=== PATIENT | male | born 1980 | race Caucasian/White ===

== ENCOUNTER → 2017-02-18 | Outpatient (CLI) | payer OTHER ==
--- NOTE | 2017-02-18 09:41 | CT ---
EXAMINATION TYPE: CT abdomen pelvis w con DATE OF EXAM: 02/18/2017 9:04 AM COMPARISON: NONE HISTORY: Rt inguinal hernia for 4 months per patient with groin pain, history of ruptured spleen per patient. CT DLP: 1129 mGycm, Automated Exposure Control for Dose Reduction was Utilized. CONTRAST: CT scan of the abdomen and pelvis is performed with oral and with IV Contrast, patient injected with 100 mL of Omnipaque 300. FINDINGS: LUNG BASES: No significant abnormality is appreciated. LIVER/GB: No significant abnormality is appreciated. PANCREAS: There is well demarcated left lateral margin of pancreas on axial image 19 with absent dist al body and tail suggesting prior partial pancreatectomy changes. 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 SPLEEN: No significant abnormality is seen. ADRENALS: No significant abnormality is seen. KIDNEYS: There is 2 mm calculus mid pole level left kidney on axial image 26. Symmetric cortical medu llary uptake and excretion from both kidneys is seen. No hydronephrosis is evident bilaterally. BOWEL: The oral contrast reaches level of the distal transverse colon. There is no suspicious small o r large bowel dilatation identified. Normal-appearing appendix is seen from the cecum near coronal im age 53. PROSTATE/SEMINAL VESICLES: No gross abnormality seen. LYMPH NODES: No greater than 1cm abdominal or pelvic lymph nodes are appreciated. OSSEOUS STRUCTURES: No significant abnormality is seen. OTHER: No significant fat or bowel containing right inguinal hernia is present. Benign-appearing subc entimeter groin lymph nodes are noted bilaterally. IMPRESSION: No suspicious bowel or fat-containing inguinal hernia is seen bilaterally. Symmetric moses earance to the inguinal canals is noted.
== END | disposition home or self-care (01) ==
LOC: RADCTMAIN 08:24
PROVIDERS: ATTEND Surgery
DX: K40.90 Unilateral inguinal hernia, without obstruction or gangrene, not specified as recurrent (principal)
CPT/HCPCS: 74177; Q9967

== ENCOUNTER 2017-04-30 08:22 | Day surgery (SDC) | payer OTHER ==
[2017-04-29 11:26] VITALS: BMI 24.3
[~2017-04-30 08:22] MED LIST: DEXAMETHASONE SOD PHOSPHATE 10 MG/ML 1 ML VIAL IV ONE; HYDROmorphone 1 MG/ML 1 ML SYRINGE IVP PRN; LACTATED RINGERS 1,000 ML IV SCH; LIDOCAINE 1% 20 ML VIAL (10MG/ML) FOR IV START INTRADERMA PRN; ONDANSETRON 4 MG/2 ML VIAL IVP ONE; SCOPOLAMINE 1.5MG/72HR PATCH TRANSDERM ONE; ceFAZolin 2 GM in SODIUM CHLORIDE 0.9% 100 ML IVPB ONE
[2017-04-30 08:32] VITALS: RESP 16; TEMP 98.3
[2017-04-30] MEDS ORDERED: fentaNYL (PF) 50 MCG/ML 2 ML AMP IV ONE (09:56)
[2017-04-30] MEDS ORDERED: MIDAZOLAM 2 MG/2 ML VIAL IVP ONE (09:56)
[2017-04-30 10:44] VITALS: BP 114/78; PULSE 99
--- NOTE | 2017-04-30 11:05 | P.PN ---
Progress Note - Text Patient is a 37-year-old gentleman who initially presented to me about a year ago with right groin pain and swelling. Clinically diagnosed as having inguinal hernia. He has previously canceled for surgery twice. He presented after having back strain yesterday. He is now complaining of significant amount of pain in his back with difficulty in walking and numbness and tingling shooting down his left leg when he bends. He has received Versed at this time. On physical examination he is afebrile his vital signs stable and will region were inspected minimal tenderness. There is no incarcerated inguinal hernias at this time. Although he does not report any loss of sensation at this time his examination is limited due to the fact that she received Versed already. Assessment and plan. Patient is symptomatic right inguinal possible bilateral inguinal hernia. He was scheduled for robot-assisted laparoscopic hernia repair. However due to the significant finding of moderate to severe back pain resulting in difficulty in walking and numbness tingling when bending I have elected to hold off on the surgery. At this time and do not want to worsen his back pain by positioning which may require some twisting. The patient she'll be rescheduled for his inguinal hernia once his back issues have resolved. He is to follow-up with his primary care doctor for his back issues.
== END 2017-04-30 11:10 | disposition home or self-care (01) ==
LOC: OR 08:22
PROVIDERS: ATTEND Surgery
DX: K40.20 Bilateral inguinal hernia, without obstruction or gangrene, not specified as recurrent (principal); Z87.891 Personal history of nicotine dependence
CPT/HCPCS: 49650; J2250; J1100; J2405; J3010

== ENCOUNTER 2017-12-02 18:30 | Emergency (ER) | payer OTHER ==
[2017-12-02] MEDS ORDERED: KETOROLAC 30 MG/ML 1 ML VIAL IVP STA (18:58)
[2017-12-02] MEDS ORDERED: SODIUM CHLORIDE 0.9% 2,000 ML IV STA (18:58)
[2017-12-02] MEDS ORDERED: ONDANSETRON 4 MG/2 ML VIAL IVP STA (18:58)
--- NOTE | 2017-12-02 19:12 | ED ---
General Adult HPI - General Chief complaint: ENT Stated complaint: Vomiting Time Seen by Provider: 12/02/17 18:48 Source: patient, RN notes reviewed Mode of arrival: ambulatory Limitations: no limitations - History of Present Illness Initial comments: Chief complaint and history of present illness this is a 37-year-old male here for complaint of nausea vomiting for 33 days. Also with a sore throat muscle aches and pains. Patient denies any significant headache no stiff neck. - Related Data Previous Rx's Medication Instructions Recorded Azithromycin [Zithromax Z-pack] 250 mg PO DIRECTED #6 tab 12/02/17 Allergies Allergy/AdvReac Type Severity Reaction Status Date / Time No Known Allergies Allergy Verified 12/02/17 18:52 Review of Systems ROS Statement: Those systems with pertinent positive or pertinent negative responses have been documented in the HPI. review of systems. The patient reports no visual acuity changes reports having had a sore throat, mild headache but no meningeal irritation no stiff neck. No chest pain or shortness of breath he said nausea vomiting for 2 days to keep anything down. Denies any rashes. Did not get a flu shot this year. All systems are reviewed.Past medical problems significant for asthma, osteoarthritis and right shoulder surgery. He' s also had bilateral inguinal hernia repair. Denies any ALLERGIES. Does smoke strongly encouraged to stop drink alcohol socially. His occupation is a applicator sprayer. ROS Other: All systems not noted in ROS Statement are negative. Past Medical History Past Medical History: Asthma, Osteoarthritis (OA) Additional Past Medical History / Comment(s): , Right shoulder pain , inguinal hernia History of Any Multi-Drug Resistant Organisms: None Reported Past Surgical History: Hernia Repair Additional Past Surgical History / Comment(s): spleen repair in 1990, drained a cyst on pancreas Past Anesthesia/Blood Transfusion Reactions: No Reported Reaction Past Psychological History: Depression Smoking Status: Current every day smoker - Past Family History Mother Family Medical History: No Reported History General Exam - General Exam Comments Initial Comments: General: The patient is awake and alert, complaining of muscle aches and pains, fever at home. Sore throat and cough. Vital signs temperature 100 pulse 127 respiratory rate 16 pulse ox 97% room air blood pressure 132/92 Eye: Pupils are equal, round and reactive to light, extra-ocular movements are intact ; there is normal conjunctiva bilaterally. No signs of icterus. Ears, nose, mouth and throat: There are moist mucous membranes and no oral lesions. pharynx mildly red no exudate. Neck: The neck is supple, there is no tenderness , tender cervical lymphadenopathy. Cardiovascular: tachycardic heart rate, 125.. No murmur, rub or gallop is appreciated. Respiratory: Lungs are clear to auscultation, respirations are non-labored, breath sounds are equal. No wheezes, stridor, rales, or rhonchi. Gastrointestinal: Soft, non-distended, non-tender abdomen without masses or organomegaly noted. There is no rebound or guarding present. No CVA tenderness. Bowel sounds are unremarkable. Back: There is no tenderness to palpation in the midline. There is no obvious deformity. No rashes noted. Musculoskeletal: Normal ROM, no tenderness, There is no pedal edema. There is no calf tenderness or swelling. Sensation intact. Neurological: no evidence of any complaint of a neuro deficits. Skin: Skin is warm and dry and no rashes or lesions are noted. Psychiatric: past history depression no complaints this time. Limitations: no limitations Course Vital Signs 12/02/17 18:39 Temperature 100 F H Pulse Rate 127 H Respiratory 16 Rate Blood Pressure 132/92 O2 Sat by Pulse 97 Oximetry Medical Decision Making - Medical Decision Making rectal decision making; the patient presents with fever muscle aches and pains and sore throat. Labs show white count 9.1 hemoglobin 16 hematocrit of 50. Potassium 4.4 with a BUN 20 creatinine 0.88 and GFR greater than 60. Glucose 1. Patient's strep test is positive. His flu tests are negative. - Lab Data Result diagrams: 12/02/17 19:12 12/02/17 19:12 Lab Results 12/02/17 12/02/17 12/02/17 Range/Units 19:12 19:12 19:12 WBC 9.1 (3.8-10.6) k/uL RBC 5.54 (4.30-5.90) m/uL Hgb 16.9 (13.0-17.5) gm/dL Hct 50.7 (39.0-53.0) % MCV 91.5 (80.0-100.0) fL MCH 30.5 (25.0-35.0) pg MCHC 33.3 (31.0-37.0) g/dL RDW 12.5 (11.5-15.5) % Plt Count 231 (150-450) k/uL Neutrophils % 86 % Lymphocytes % 7 % Monocytes % 4 % Eosinophils % 1 % Basophils % 1 % Neutrophils # 7.8 H (1.3-7.7) k/uL Lymphocytes # 0.7 L (1.0-4.8) k/uL Monocytes # 0.4 (0-1.0) k/uL Eosinophils # 0.1 (0-0.7) k/uL Basophils # 0.0 (0-0.2) k/uL Sodium 137 (137-145) mmol/L Potassium 4.4 (3.5-5.1) mmol/L Chloride 99 (98-107) mmol/L Carbon Dioxide 27 (22-30) mmol/L Anion Gap 11 mmol/L BUN 20 (9-20) mg/dL Creatinine 0.88 (0.66-1.25) mg/dL Est GFR (MDRD) Af Amer >60 (>60 ml/min/1.73 sqM) Est GFR (MDRD) Non-Af >60 (>60 ml/min/1.73 sqM) Glucose 108 H (74-99) mg/dL Calcium 9.9 (8.4-10.2) mg/dL Total Bilirubin 0.5 (0.2-1.3) mg/dL AST 20 (17-59) U/L ALT 32 (21-72) U/L Alkaline Phosphatase 93 (38-126) U/L Total Protein 7.5 (6.3-8.2) g/dL Albumin 4.5 (3.5-5.0) g/dL Influenza Type A RNA Not Detected (Not Detectd) Influenza Type B (PCR) Not Detected (Not Detectd) Group A Strep Rapid (Negative) 12/02/17 Range/Units 19:12 WBC (3.8-10.6) k/uL RBC (4.30-5.90) m/uL Hgb (13.0-17.5) gm/dL Hct (39.0-53.0) % MCV (80.0-100.0) fL MCH (25.0-35.0) pg MCHC (31.0-37.0) g/dL RDW (11.5-15.5) % Plt Count (150-450) k/uL Neutrophils % % Lymphocytes % % Monocytes % % Eosinophils % % Basophils % % Neutrophils # (1.3-7.7) k/uL Lymphocytes # (1.0-4.8) k/uL Monocytes # (0-1.0) k/uL Eosinophils # (0-0.7) k/uL Basophils # (0-0.2) k/uL Sodium (137-145) mmol/L Potassium (3.5-5.1) mmol/L Chloride (98-107) mmol/L Carbon Dioxide (22-30) mmol/L Anion Gap mmol/L BUN (9-20) mg/dL Creatinine (0.66-1.25) mg/dL Est GFR (MDRD) Af Amer (>60 ml/min/1.73 sqM) Est GFR (MDRD) Non-Af (>60 ml/min/1.73 sqM) Glucose (74-99) mg/dL Calcium (8.4-10.2) mg/dL Total Bilirubin (0.2-1.3) mg/dL AST (17-59) U/L ALT (21-72) U/L Alkaline Phosphatase (38-126) U/L Total Protein (6.3-8.2) g/dL Albumin (3.5-5.0) g/dL Influenza Type A RNA (Not Detectd) Influenza Type B (PCR) (Not Detectd) Group A Strep Rapid Positive A (Negative) Disposition Clinical Impression: Strep pharyngitis Disposition: HOME SELF-CARE Condition: Fair Instructions: Strep Throat (ED) Additional Instructions: Increase fluids, use Tylenol or ibuprofen for pain and fever. Taking the azithromycin until complete. Prescriptions: Azithromycin [Zithromax Z-pack] 250 mg PO DIRECTED #6 tab Referrals: Marta Marrero MD [Primary Care Provider] - 1-2 days Time of Disposition: 21:21
[2017-12-02 19:28] LABS: Basophils % (A) 1 %; Eosinophils # (A) 0.1 k/uL (0-0.7); Eosinophils % (A) 1 %; HCT 50.7 % (39.0-53.0); HGB 16.9 gm/dL (13.0-17.5); Lymphocytes # (A) 0.7 k/uL (1.0-4.8); Lymphocytes % (A) 7 %; MCH 30.5 pg (25.0-35.0); MCHC 33.3 g/dL (31.0-37.0); MCV 91.5 fL (80.0-100.0); Mean Platelet Volume 7.1; Monocytes # (A) 0.4 k/uL (0-1.0); Monocytes % (A) 4 %; Neutrophils # (A) 7.8 k/uL (1.3-7.7); Neutrophils % (A) 86 %; Platelet Count 231 k/uL (150-450); RBC 5.54 m/uL (4.30-5.90); RDW 12.5 % (11.5-15.5); WBC 9.1 k/uL (3.8-10.6)
[2017-12-02 19:32] LABS: ALT 32 U/L (21-72); AST 20 U/L (17-59); Albumin 4.5 g/dL (3.5-5.0); Alkaline Phosphatase 93 U/L (38-126); Anion Gap 11 mmol/L; Blood Urea Nitrogen 20 mg/dL (9-20); Calcium 9.9 mg/dL (8.4-10.2); Carbon Dioxide 27 mmol/L (22-30); Chloride 99 mmol/L (98-107); Glucose 108 mg/dL (74-99); Potassium 4.4 mmol/L (3.5-5.1); Sodium 137 mmol/L (137-145); Total Bilirubin 0.5 mg/dL (0.2-1.3); Total Protein 7.5 g/dL (6.3-8.2)
[2017-12-02] MEDS ORDERED: AZITHROMYCIN 250 MG TAB PO STA (20:50)
[2017-12-02 23:35] VITALS: BP 112/73; PULSE 101; RESP 18; TEMP 100.6
== END 2017-12-02 21:46 | disposition home or self-care (01) ==
LOC: EC 18:30
DX: J02.0 Streptococcal pharyngitis (principal); F17.200 Nicotine dependence, unspecified, uncomplicated
CPT/HCPCS: 36415; 80053; 85025; 87430; 87502; 99284; 96374; 96361 ×2; J2405

== ENCOUNTER 2018-12-18 00:55 | Emergency (ER) | payer OTHER ==
[2018-12-18 03:32] LABS: Appearance,Urine Clear (Clear); Basophils # (A) 0.1 k/uL (0-0.2); Basophils % (A) 1 %; Bilirubin,Urine Negative (Negative); Blood,Urine Negative (Negative); Color,Urine Yellow; Eosinophils # (A) 0.2 k/uL (0-0.7); Eosinophils % (A) 2 %; Glucose,Urine (UA) Negative (Negative); HCT 46.7 % (39.0-53.0); HGB 15.3 gm/dL (13.0-17.5); Ketones,Urine Negative (Negative); Leukocyte Esterase,Urine Negative (Negative); Lymphocytes # (A) 2.9 k/uL (1.0-4.8); Lymphocytes % (A) 31 %; MCH 29.5 pg (25.0-35.0); MCHC 32.7 g/dL (31.0-37.0); MCV 90.2 fL (80.0-100.0); Mean Platelet Volume 6.8; Monocytes # (A) 0.6 k/uL (0-1.0); Monocytes % (A) 6 %; Neutrophils # (A) 5.3 k/uL (1.3-7.7); Neutrophils % (A) 57 %; Nitrite,Urine Negative (Negative); PH, Urine 5.5 (5.0-8.0); Platelet Count 243 k/uL (150-450); Protein,Urine Negative (Negative); RBC 5.17 m/uL (4.30-5.90); Specific Gravity,Urine 1.018 (1.001-1.035); Urobilinogen,Urine <2.0 mg/dL (<2.0); WBC 9.4 k/uL (3.8-10.6)
[2018-12-18 03:36] LABS: ALT 19 U/L (21-72); AST 17 U/L (17-59); Albumin 4.2 g/dL (3.5-5.0); Alkaline Phosphatase 64 U/L (38-126); Amylase 63 U/L (30-110); Anion Gap 11 mmol/L; Blood Urea Nitrogen 19 mg/dL (9-20); Calcium 9.5 mg/dL (8.4-10.2); Carbon Dioxide 22 mmol/L (22-30); Chloride 105 mmol/L (98-107); Glucose 130 mg/dL (74-99); Lipase 117 U/L (23-300); Potassium 4.3 mmol/L (3.5-5.1); Sodium 138 mmol/L (137-145); Total Bilirubin 0.3 mg/dL (0.2-1.3); Total Protein 7.2 g/dL (6.3-8.2)
--- NOTE | 2018-12-18 03:37 | CT ---
EXAMINATION TYPE: CT abdomen pelvis wo con DATE OF EXAM: 12/18/2018 COMPARISON: 02/18/2017 HISTORY: LLQ pain CT DLP: 459.4 mGycm Automated exposure control for dose reduction was used. TECHNIQUE: Helical acquisition of images was performed from the lung bases through the pelvis. FINDINGS: Lung bases are clear. There is no pleural effusion. Heart size is normal. There is no pericardial eff usion. Liver spleen increased gallbladder appear normal. Bile ducts are not dilated. There is no adrenal mas s. The kidneys have normal size and contour. There is no hydronephrosis. There is 3 mm calculus poste rior left kidney. There is no retroperitoneal adenopathy. Ureters are not dilated. Bladder distends s moothly. I see no pelvic mass. There is no inguinal hernia. There is no evidence of a bowel obstructi on. There is no mesenteric edema. There is no free fluid in the pelvis. There is normal-appearing appendi x. Appendix is close to the cecum. There is no sign of free air. The lumbar vertebra have fairly normal spacing and alignment. There is no compression fracture. Bony pelvis appears intact. IMPRESSION: NEGATIVE CT SCAN OF THE ABDOMEN PELVIS. NORMAL APPENDIX.
--- NOTE | 2018-12-18 03:47 | ED ---
Abdominal Pain HPI - General Chief Complaint: Abdominal Pain Stated Complaint: ABD PAIN Time Seen by Provider: 12/18/18 02:11 Source: patient Mode of arrival: ambulatory Limitations: no limitations - History of Present Illness MD Complaint: abdominal pain Onset/Timin -: month(s) Location: LLQ Radiation: none Migration to: no migration Severity: moderate Quality: sharp Consistency: constant Improves With: nothing Worsens With: nothing Associated Symptoms: nausea - Related Data Previous Rx's Medication Instructions Recorded Dicyclomine [Bentyl] 20 mg PO QID #15 tablet 12/18/18 Famotidine [Pepcid] 20 mg PO BID #14 tablet 12/18/18 Allergies Allergy/AdvReac Type Severity Reaction Status Date / Time No Known Allergies Allergy Verified 12/18/18 01:07 Review of Systems ROS Statement: Those systems with pertinent positive or pertinent negative responses have been documented in the HPI. ROS Other: All systems not noted in ROS Statement are negative. Constitutional: Denies: fever, chills, weakness Respiratory: Denies: cough, dyspnea Cardiovascular: Denies: chest pain Gastrointestinal: Reports: abdominal pain, nausea. Denies: vomiting, diarrhea, constipation, melena, hematochezia Genitourinary: Denies: dysuria, hematuria, discharge, testicular pain, testicular mass Musculoskeletal: Denies: back pain Skin: Denies: rash Neurological: Denies: headache Past Medical History Past Medical History: Asthma, Osteoarthritis (OA) Additional Past Medical History / Comment(s): , Right shoulder pain , inguinal hernia, History of Any Multi-Drug Resistant Organisms: None Reported Past Surgical History: Hernia Repair Additional Past Surgical History / Comment(s): spleen repair in 1990, drained a cyst on pancreas , Past Anesthesia/Blood Transfusion Reactions: No Reported Reaction Past Psychological History: Depression Smoking Status: Current every day smoker Past Alcohol Use History: None Reported Past Drug Use History: Marijuana - Past Family History Mother Family Medical History: No Reported History General Exam Limitations: no limitations General appearance: alert, in no apparent distress Head exam: Present: atraumatic, normocephalic Eye exam: Present: normal appearance. Absent: scleral icterus, conjunctival injection ENT exam: Present: normal oropharynx Respiratory exam: Present: normal lung sounds bilaterally. Absent: respiratory distress, wheezes, rales, rhonchi, stridor Cardiovascular Exam: Present: regular rate, normal rhythm, normal heart sounds. Absent: systolic murmur, diastolic murmur, rubs, gallop GI/Abdominal exam: Present: soft. Absent: distended, tenderness, guarding, rebound, rigid Extremities exam: Present: normal inspection, normal capillary refill. Absent: pedal edema, calf tenderness Back exam: Present: normal inspection. Absent: CVA tenderness (R), CVA tenderness (L) Neurological exam: Present: alert, normal gait Skin exam: Present: warm, dry, intact, normal color. Absent: rash Course Vital Signs 12/18/18 12/18/18 01:04 04:27 Temperature 97.9 F 98.6 F Pulse Rate 100 86 Respiratory 20 16 Rate Blood Pressure 156/98 120/82 O2 Sat by Pulse 99 100 Oximetry Medical Decision Making - Lab Data Result diagrams: 12/18/18 02:35 12/18/18 02:35 Lab Results 12/18/18 12/18/18 12/18/18 Range/Units 02:35 02:35 02:35 WBC 9.4 (3.8-10.6) k/uL RBC 5.17 (4.30-5.90) m/uL Hgb 15.3 (13.0-17.5) gm/dL Hct 46.7 (39.0-53.0) % MCV 90.2 (80.0-100.0) fL MCH 29.5 (25.0-35.0) pg MCHC 32.7 (31.0-37.0) g/dL RDW 13.0 (11.5-15.5) % Plt Count 243 (150-450) k/uL Neutrophils % 57 % Lymphocytes % 31 % Monocytes % 6 % Eosinophils % 2 % Basophils % 1 % Neutrophils # 5.3 (1.3-7.7) k/uL Lymphocytes # 2.9 (1.0-4.8) k/uL Monocytes # 0.6 (0-1.0) k/uL Eosinophils # 0.2 (0-0.7) k/uL Basophils # 0.1 (0-0.2) k/uL Sodium 138 (137-145) mmol/L Potassium 4.3 (3.5-5.1) mmol/L Chloride 105 (98-107) mmol/L Carbon Dioxide 22 (22-30) mmol/L Anion Gap 11 mmol/L BUN 19 (9-20) mg/dL Creatinine 0.79 (0.66-1.25) mg/dL Est GFR (CKD-EPI)AfAm >90 (>60 ml/min/1.73 sqM) Est GFR (CKD-EPI)NonAf >90 (>60 ml/min/1.73 sqM) Glucose 130 H (74-99) mg/dL Calcium 9.5 (8.4-10.2) mg/dL Total Bilirubin 0.3 (0.2-1.3) mg/dL AST 17 (17-59) U/L ALT 19 L (21-72) U/L Alkaline Phosphatase 64 (38-126) U/L Total Protein 7.2 (6.3-8.2) g/dL Albumin 4.2 (3.5-5.0) g/dL Amylase 63 (30-110) U/L Lipase 117 (23-300) U/L Urine Color Yellow Urine Appearance Clear (Clear) Urine pH 5.5 (5.0-8.0) Ur Specific Vass 1.018 (1.001-1.035) Urine Protein Negative (Negative) Urine Glucose (UA) Negative (Negative) Urine Ketones Negative (Negative) Urine Blood Negative (Negative) Urine Nitrite Negative (Negative) Urine Bilirubin Negative (Negative) Urine Urobilinogen <2.0 (<2.0) mg/dL Ur Leukocyte Esterase Negative (Negative) Disposition Clinical Impression: Abdominal pain Disposition: HOME SELF-CARE Condition: Fair Instructions: Abdominal Pain (ED) Prescriptions: Dicyclomine [Bentyl] 20 mg PO QID #15 tablet Famotidine [Pepcid] 20 mg PO BID #14 tablet Is patient prescribed a controlled substance at d/c from ED?: No Referrals: Marta Marrero MD [Primary Care Provider] - 1-2 days
[2018-12-18 04:30] VITALS: BP 120/82; PULSE 86; RESP 16; TEMP 98.6
== END 2018-12-18 04:27 | disposition home or self-care (01) ==
LOC: EC 00:55
DX: R10.32 Left lower quadrant pain (principal); R11.0 Nausea; F17.200 Nicotine dependence, unspecified, uncomplicated
CPT/HCPCS: 36415; 74176; 80053; 81003; 82150; 83690; 85025; 99284

== ENCOUNTER 2019-12-09 08:15 | Emergency (ER) | payer OTHER ==
[2019-12-09 08:29] VITALS: BP 118/82; PULSE 85; RESP 18; TEMP 97.6
[2019-12-09] MEDS ORDERED: PROPARACAINE 0.5% OPHTH DROPS 15 ML BTL BOTH EYES STA (08:45)
[2019-12-09] MEDS ORDERED: DIPH,PERTUS(ACELL)TETVAC-LF 0.5 ML VIAL IM ONE (09:23)
--- NOTE | 2019-12-09 09:32 | ED ---
General Adult HPI - General Source: patient, RN notes reviewed Mode of arrival: ambulatory Limitations: no limitations <Sid Sin - Last Filed: 12/09/19 09:33> <An Harkins - Last Filed: 12/16/19 14:49> - General Chief complaint: Eye Problems Stated complaint: FB in eye Time Seen by Provider: 12/09/19 08:45 - History of Present Illness Initial comments: 39-year-old male with a past medical history of asthma, arthritis presents to the emergency department for a chief complaint of left eye pain. Patient states he was working under his car at about 3 AM. States he was wearing protective eyewear. However he felt something get in his eye. States he flushed it out but it is still hurting. States he has not see anything in his eye. Patient's tetanus is up-to-date as of 2016. He denies any visual changes besides some blurriness from watering from the left eye. Patient does not wear contacts.Dean martinez has no other complaints at this time including shortness of breath, chest pain, abdominal pain, nausea or vomiting, headache, or visual changes. (Sid Sin) - Related Data Previous Rx's Medication Instructions Recorded Dicyclomine [Bentyl] 20 mg PO QID #15 tablet 12/18/18 Famotidine [Pepcid] 20 mg PO BID #14 tablet 12/18/18 Erythromycin Ophth Oint [Romycin 1 applic LEFT EYE QID 7 Days #1 12/09/19 Ophth Oint] tube Allergies Allergy/AdvReac Type Severity Reaction Status Date / Time No Known Allergies Allergy Verified 12/09/19 08:25 Review of Systems ROS Other: All systems not noted in ROS Statement are negative. <Sid Sin - Last Filed: 12/09/19 09:33> ROS Other: All systems not noted in ROS Statement are negative. <An Harkins - Last Filed: 12/16/19 14:49> ROS Statement: Those systems with pertinent positive or pertinent negative responses have been documented in the HPI. Past Medical History Past Medical History: Asthma, Osteoarthritis (OA) Additional Past Medical History / Comment(s): , Right shoulder pain , inguinal hernia, History of Any Multi-Drug Resistant Organisms: None Reported Past Surgical History: Hernia Repair Additional Past Surgical History / Comment(s): spleen repair in 1990, drained a cyst on pancreas , Past Anesthesia/Blood Transfusion Reactions: No Reported Reaction Past Psychological History: Depression Smoking Status: Current every day smoker Past Alcohol Use History: None Reported Past Drug Use History: Marijuana - Past Family History Mother Family Medical History: No Reported History <JanuarySid chao Corie - Last Filed: 12/09/19 09:33> General Exam Limitations: no limitations General appearance: alert, in no apparent distress Head exam: Present: atraumatic, normocephalic, normal inspection Eye exam: Present: normal appearance, PERRL, EOMI, conjunctival injection (Irritation noted). Absent: scleral icterus, periorbital swelling, other (No foreign bodies in cornea noted. No foreign bodies under the eyelids. No rust rings present. Proparacaine completely relieved the pain. The eye was stained with fluorescein stain, small corneal abrasion noted at about 7:00 in the left eye. A negative Cheryl sign.) Expanded Eyelids: Normal Inspection: Bilateral Pupils: Regular, Round: Bilateral Sclera/Conjunctival: Normal Inspection: Right, Injection: Left Visual acuity (R) = 20/: 30 Visual acuity (L) = 20/: 30 ENT exam: Present: normal exam, mucous membranes moist Neck exam: Present: normal inspection. Absent: tenderness, meningismus, lymphadenopathy Respiratory exam: Present: normal lung sounds bilaterally. Absent: respiratory distress, wheezes, rales, rhonchi, stridor Cardiovascular Exam: Present: regular rate, normal rhythm, normal heart sounds. Absent: systolic murmur, diastolic murmur, rubs, gallop, clicks Neurological exam: Present: alert <Sid Sin P - Last Filed: 12/09/19 09:33> Course Vital Signs 12/09/19 08:26 Temperature 97.6 F Pulse Rate 85 Respiratory 18 Rate Blood Pressure 118/82 O2 Sat by Pulse 96 Oximetry Medical Decision Making <Sid Sin - Last Filed: 12/09/19 09:33> <An Harkins - Last Filed: 12/16/19 14:49> - Medical Decision Making Corneal abrasion noted to the left eye. This is small and at about 7:00. Negative Cheryl sign. Proparacaine completely relieved the pain. Tetanus is up-to-date. Patient was given erythromycin ointment. Recommended ophthalmology follow-up given he could have had rust in his eye however do not see any evidence of this time. Recommend he return here if he has any worsening or unresolving symptoms. (Sid Sin) I was available for consultation in the emergency department. The history and physical exam were done by the midlevel provider. I was consulted for this patients care. I reviewed the case with the midlevel provider and based on their presentation of the patient, I agree with the assessment, medical decision making and plan of care as documented. Chart was dictated using [employer] dictation software. Attempts were made to correct any dictation errors however some typographical errors may persist. (An Harkins) Disposition Is patient prescribed a controlled substance at d/c from ED?: No Time of Disposition: 09:30 <Sid Sin - Last Filed: 12/09/19 09:33> <An Harkins - Last Filed: 12/16/19 14:49> Clinical Impression: Corneal abrasion, left Disposition: HOME SELF-CARE Condition: Good Instructions (If sedation given, give patient instructions): Corneal Abrasion (ED) Additional Instructions: Please use antibiotic ointment as directed. Please follow-up with ophthalmology in one to 2 days. If you have any worsening symptoms or symptoms are not improving return to the emergency dept. Prescriptions: Erythromycin Ophth Oint [Romycin Ophth Oint] 1 applic LEFT EYE QID 7 Days #1 tube Referrals: Marta Marrero MD [Primary Care Provider] - 1-2 days Delio Alvarez MD [STAFF PHYSICIAN] - 1-2 days
== END 2019-12-09 09:49 | disposition home or self-care (01) ==
LOC: EC 08:15
DX: S05.02XA Injury of conjunctiva and corneal abrasion without foreign body, left eye, initial encounter (principal); F17.200 Nicotine dependence, unspecified, uncomplicated; X58.XXXA Exposure to other specified factors, initial encounter
CPT/HCPCS: 99283

== ENCOUNTER 2023-02-23 01:43 | Emergency (ER) | payer OTHER ==
[2023-02-23 01:47] VITALS: BP 127/89; PULSE 85; RESP 18; TEMP 97.5
[2023-02-23] MEDS ORDERED: FLUORESCEIN STRIPS 1 MG STRIP LEFT EYE ONE (01:53)
[2023-02-23] MEDS ORDERED: PROPARACAINE 0.5% OPHTH DROPS 15 ML BTL LEFT EYE STA (01:53)
[2023-02-23] MEDS ORDERED: CIPROFLOXACIN 0.3% OPHTH SOLN 5 ML BTL LEFT EYE STA (01:55)
[2023-02-23] MEDS ORDERED: DICLOFENAC 0.1% OPHTH SOLN 2.5 ML BTL LEFT EYE ONE (01:56)
--- NOTE | 2023-02-23 02:07 | ED ---
Eye Problem HPI - General Chief complaint: Eye Problems Stated complaint: eye injury Time Seen by Provider: 02/23/23 01:48 Source: patient, RN notes reviewed Mode of arrival: ambulatory Limitations: no limitations - History of Present Illness Initial comments: This is a 43-year-old male who presents to the emergency department for eye problems. States that approximately 20 minutes prior to arrival, he got cigarette mare in his left eye. States that he was smoking a cigarette, and went to look underneath his car. He accidentally hit the cigarette on part of the car, and the ashes fell down into his eye. He immediately came to the emergency department and did not rinse this on his own. He has minor discomfort with associated photophobia. Also feels like he has something in his eye and has difficulty keeping it open. Tetanus status is up to date. Denies any fevers, chills, sore throat, cough, dyspnea, chest pain, palpitations, abdominal pain, nausea, vomiting, diarrhea, back pain, or headaches. MD chief complaint: eye pain, foreign body Location: left eye Place: home Treatments Prior to Arrival: none - Related Data Patient Tetanus UTD: Yes Previous Rx's Medication Instructions Recorded Dicyclomine [Bentyl] 20 mg PO QID #15 tablet 12/18/18 Famotidine [Pepcid] 20 mg PO BID #14 tablet 12/18/18 Erythromycin Ophth Oint [Romycin 1 applic LEFT EYE QID 7 Days #1 12/09/19 Ophth Oint] tube Allergies Allergy/AdvReac Type Severity Reaction Status Date / Time No Known Allergies Allergy Verified 02/23/23 01:44 Review of Systems ROS Statement: Those systems with pertinent positive or pertinent negative responses have been documented in the HPI. ROS Other: All systems not noted in ROS Statement are negative. Past Medical History Past Medical History: Asthma, Osteoarthritis (OA) Additional Past Medical History / Comment(s): , Right shoulder pain , inguinal hernia, History of Any Multi-Drug Resistant Organisms: None Reported Past Surgical History: Hernia Repair Additional Past Surgical History / Comment(s): spleen repair in 1990, drained a cyst on pancreas , Past Anesthesia/Blood Transfusion Reactions: No Reported Reaction Past Psychological History: Depression Smoking Status: Current every day smoker Past Alcohol Use History: None Reported Past Drug Use History: Marijuana - Past Family History Mother Family Medical History: No Reported History General Exam Limitations: no limitations General appearance: alert, in no apparent distress Head exam: Present: atraumatic, normocephalic, normal inspection Eye exam: Present: PERRL, EOMI, other (Minor conjunctival irritation. No obvious foreign bodies or changes to the cornea.) Respiratory exam: Present: normal lung sounds bilaterally. Absent: respiratory distress, wheezes, rales, rhonchi, stridor Cardiovascular Exam: Present: regular rate, normal rhythm, normal heart sounds. Absent: systolic murmur, diastolic murmur, rubs, gallop, clicks Neurological exam: Present: alert, oriented X3, CN II-XII intact Psychiatric exam: Present: normal affect, normal mood Skin exam: Present: warm, dry, intact, normal color. Absent: rash Course Vital Signs 02/23/23 01:45 Temperature 97.5 F L Pulse Rate 85 Respiratory 18 Rate Blood Pressure 127/89 O2 Sat by Pulse 98 Oximetry Medical Decision Making - Medical Decision Making This is a 43-year-old male who presents to the emergency department for concerns of getting cigarette mare in his left eye. Was pt. sent in by a medical professional or institution? @ -No Did you speak to anyone other than the patient for history? @ -No Did you review nursing and triage notes? @ -Yes, and I agree, it is accurate with regards to the patient's symptoms. Were old charts reviewed? @ -No Differential Diagnosis? @ -Differential Eye Injury: Corneal abrasion, irritation, caustic injury, occular burn, this is not meant to be an all-inclusive list. What testing was considered but not performed? (CT, X-rays, U/S, labs)? Why? @ -None What meds were considered but not given? Why? @ -None Did you discuss the management of the patient with other professionals? @ -No Did you reconcile home meds? @ -No Was smoking cessation discussed for >3mins.? @ -No Was critical care preformed (if so, how long)? @ -No Were there social determinants of health that impacted care today? How? (Homelessness, low income, unemployed, alcoholism, drug addiction, transportation, low edu. Level, literacy, decrease access to med. care, [facility], rehab)? @ -No Was there de-escalation of care discussed even if they declined? (Discuss DNR or withdrawal of care, Hospice)? @ -No What co-morbidities impacted this encounter? (DM, HTN, Smoking, COPD, CAD, Cancer, CVA, Hep., AIDS, mental health diagnosis, sleep apnea, morbid obesity)? @ -None Was patient admitted / discharged? @ -Discharged. [place] lens was applied and the eye was irrigated with 500 mL of normal saline. Patient did note dramatic improvement afterwards. Fluorescein staining was performed and uptake was noted. Will treat the patient for corneal abrasion and corneal burn. He did not have any problems with his vision and only reported minor discomfort prior to discharge. He was given a bottle of ciprofloxacin eyedrops in the emergency department. Dosing instructions reviewed. Tetanus vaccine is up to date. Information for ophthalmology follow-up provided. He is instructed to contact them when their office opens this morning for a follow-up appointment. Undiagnosed new problem with uncertain prognosis? @ -None Drug Therapy requiring intensive monitoring for toxicity (Heparin, Nitro, Insulin, Cardizem)? @ -None Were any procedures done? @ -None Diagnosis/symptom? @ -Corneal abrasion, corneal burn Acute, or Chronic, or Acute on Chronic? @ -Acute Uncomplicated (without systemic symptoms) or Complicated (systemic symptoms)? @ -Uncomplicated Side effects of treatment? @ -None Exacerbation, Progression, or Severe Exacerbation] @ -Not applicable Poses a threat to life or bodily function? @ -No Return precautions reviewed in depth, the patient is instructed to return to the emergency department with any new, worsening, or concerning symptoms. Patient verbalized understanding. This case was discussed in detail with the attending ED physician, Dr. Grey. Presentation, findings, and treatment plan discussed in detail as well. Disposition Clinical Impression: Corneal abrasion, Corneal burn Disposition: HOME SELF-CARE Additional Instructions: Return to the emergency department with any new, worsening, or concerning symptoms. Apply the ciprofloxacin eyedrops as 2 drops to the left eye 4 times daily for 5 days. You can use the diclofenac eyedrops as one drop in the left eye up to 4 times daily as needed for pain. Contact ophthalmology as listed below when the office opens this morning for a follow-up appointment. Is patient prescribed a controlled substance at d/c from ED?: No Referrals: None,Stated [Primary Care Provider] - 1-2 days Adria Almonte MD [STAFF PHYSICIAN] - 1-2 days
== END 2023-02-23 02:48 | disposition home or self-care (01) ==
LOC: EC 01:43
DX: S05.02XA Injury of conjunctiva and corneal abrasion without foreign body, left eye, initial encounter (principal); T26.12XA Burn of cornea and conjunctival sac, left eye, initial encounter; J45.909 Unspecified asthma, uncomplicated; F32.A Depression, unspecified; F17.210 Nicotine dependence, cigarettes, uncomplicated; F12.90 Cannabis use, unspecified, uncomplicated; X08.8XXA Exposure to other specified smoke, fire and flames, initial encounter
CPT/HCPCS: 99283

== ENCOUNTER 2023-03-10 21:21 | Emergency (ER) | payer OTHER ==
[2023-03-10 21:48] VITALS: BP 137/96; PULSE 112; RESP 20; TEMP 98.5
--- NOTE | 2023-03-10 22:08 | XR ---
EXAMINATION TYPE: XR hand complete RT DATE OF EXAM: 03/10/2023 9:57 PM INDICATION: Patient age:Male; 43 years old; Reason for study: pain; COMPARISON: None TECHNIQUE: Frontal, lateral and oblique views of the right hand were obtained. FINDINGS: Normal alignment of the visualized joints. No acute osseous pathology is identified. No e vidence of soft tissue swelling. IMPRESSION: No acute osseous pathology.
--- NOTE | 2023-03-10 22:37 | ED ---
General Adult HPI - General Chief complaint: Extremity Injury, Upper Stated complaint: R hand injury Time Seen by Provider: 03/10/23 22:18 Source: patient, RN notes reviewed Mode of arrival: ambulatory Limitations: no limitations - History of Present Illness Initial comments: 43-year-old male presents to the emergency department with a chief c omplaint of hand pain after punching a wall yesterday.. Patient reports that he yesterday and his reports increased worsening pain. He denies any numbness, tingling, weakness in his extremity. He denies taking anything for his symptoms. - Related Data Home Medications Medication Instructions Recorded Confirmed No Known Home Medications 03/10/23 03/10/23 Allergies Allergy/AdvReac Type Severity Reaction Status Date / Time No Known Allergies Allergy Verified 03/10/23 21:48 Review of Systems ROS Statement: Those systems with pertinent positive or pertinent negative responses have been documented in the HPI. ROS Other: All systems not noted in ROS Statement are negative. Past Medical History Past Medical History: Asthma, Osteoarthritis (OA) Additional Past Medical History / Comment(s): , Right shoulder pain , inguinal hernia, History of Any Multi-Drug Resistant Organisms: None Reported Past Surgical History: Hernia Repair Additional Past Surgical History / Comment(s): spleen repair in 1990, drained a cyst on pancreas , Past Anesthesia/Blood Transfusion Reactions: No Reported Reaction Past Psychological History: Depression Smoking Status: Current every day smoker Past Alcohol Use History: None Reported Past Drug Use History: Marijuana - Past Family History Mother Family Medical History: No Reported History General Exam Limitations: no limitations General appearance: alert, in no apparent distress Head exam: Present: atraumatic, normocephalic, normal inspection Eye exam: Present: normal appearance, PERRL, EOMI. Absent: scleral icterus, conjunctival injection, periorbital swelling ENT exam: Present: normal exam, mucous membranes moist Neck exam: Present: normal inspection. Absent: tenderness, meningismus, lymphadenopathy Respiratory exam: Present: normal lung sounds bilaterally. Absent: respiratory distress, wheezes, rales, rhonchi, stridor Cardiovascular Exam: Present: regular rate, normal rhythm, normal heart sounds. Absent: systolic murmur, diastolic murmur, rubs, gallop, clicks GI/Abdominal exam: Present: soft, normal bowel sounds. Absent: distended, tend erness, guarding, rebound, rigid Extremities exam: Present: normal inspection, full ROM, normal capillary refill. Absent: tenderness, pedal edema, joint swelling, calf tenderness Back exam: Present: normal inspection Neurological exam: Present: alert, oriented X3, CN II-XII intact Psychiatric exam: Present: normal affect, normal mood Skin exam: Present: warm, dry, intact, normal color. Absent: rash Course Vital Signs 03/10/23 21:46 Temperature 98.5 F Pulse Rate 112 H Respiratory 20 Rate Blood Pressure 137/96 O2 Sat by Pulse 99 Oximetry Medical Decision Making - Medical Decision Making Was pt. sent in by a medical professional or institution (, [facility], [facility], urgent care, hospital, or detention...) When possible be specific @ -[No] Did you speak to anyone other than the patient for history (EMS, parent, family, police, friend...)? What history was obtained from this source @ -[No] Did you review nursing and triage notes (agree or disagree)? Why? @ -[I reviewed and agree with nursing and triage notes] Were old charts reviewed (outside hosp., previous admission, EMS record, old EKG, old radiological studies, urgent care reports/EKG's, detention records)? Report findings @ -[No old charts were reviewed] Differential Diagnosis (chest pain, altered mental status, abdominal pain women, abdominal pain men, vaginal bleeding, weakness, fever, dyspnea, syncope, head ache, dizziness, GI bleed, back pain, seizure, CVA, palpatations, mental health, musculoskeletal)? @ -[not applicable] EKG interpreted by me (3pts min.). @ -[As above] X-rays interpreted by me (1pt min.). @ -Right hand x-ray negative for any evidence of acute fracture dislocation CT interpreted by me (1pt min.). @ -[None done] U/S interpreted by me (1pt. min.). @ -[None done] What testing was considered but not performed or refused? (CT, X-rays, U/S, labs)? Why? @ -[None] What meds were considered but not given or refused? Why? @ -[None] Did you discuss the management of the patient with other professionals (professionals i.e. , CINDY, [facility], lab, RT, psych nurse, social worker masters, manufacturing quality manager, teacher, natural resource officer, pillowcase cleaner)? Give summary @ -[No] Was smoking cessation discussed for >3mins.? @ -[No] Was critical care preformed (if so, how long)? @ -[No] Were there social determinants of health that impacted care today? How? (Homelessness, low income, unemployed, alcoholism, drug addiction, transportation, low edu. Level, literacy, decrease access to med. care, senior living, rehab)? @ -[No] Was there de-escalation of care discussed even if they declined (Discuss DNR or withdrawal of care, Hospice)? DNR status @ -[No] What co-morbidities impacted this encounter? (DM, HTN, Smoking, COPD, CAD, Cancer, CVA, ARF, Chemo, Hep., AIDS, mental health diagnosis, sleep apnea, morbid obesity)? @ -[None] Was patient admitted / discharged? Hospital course, mention meds given and route, prescriptions, significant lab abnormalities, going to OR and other pertinent info. @ -Discharged. This is a 43-year-old male who presents to the emergency department with right hand pain. Patient had a thorough history and physical exam performed on the ED. Physical exam is essentially unremarkable right hand full range of motion and full strength. No obvious deformity or crepitus noted. Patient had x-rays performed which were negative. I discussed results in detail with the patient verbalized understanding and all questions were addressed. Return precautions were discussed at length. The patient was discharged in stable condition. Case discussed with Dr. Potter, [facility]. Undiagnosed new problem with uncertain prognosis? @ -[No] Drug Therapy requiring intensive monitoring for toxicity (Heparin, Nitro, Insulin, Cardizem)? @ -[No] Were any procedures done? @ -[No] Diagnosis/symptom? @ -right hand pain Acute, or Chronic, or Acute on Chronic? @ -acute Uncomplicated (without systemic symptoms) or Complicated (systemic symptoms)? @ -uncomplicated Side effects of treatment? @ -[No] Exacerbation, Progression, or Severe Exacerbation? @ -[No] Poses a threat to life or bodily function? How? (Chest pain, [place], [place], pneumonia, PE, COPD, DKA, ARF, appy, cholecystitis, CVA, Diverticulitis, Homicidal, Suicidal, threat to staff... and all critical care pts) @ -low likelihood Disposition Clinical Impression: Right hand pain Disposition: HOME SELF-CARE Condition: Stable Instructions (If sedation given, give patient instructions): Hand Sprain (ED) Additional Instructions: Please return to the nearest emergency department symptoms worsen or persist Is patient prescribed a controlled substance at d/c from ED?: No Referrals: None,Stated [Primary Care Provider] - 1-2 days Time of Disposition: 22:38
== END 2023-03-10 22:47 | disposition home or self-care (01) ==
LOC: EC 21:21
DX: M79.641 Pain in right hand (principal); J45.909 Unspecified asthma, uncomplicated; F32.A Depression, unspecified; F17.200 Nicotine dependence, unspecified, uncomplicated; F12.90 Cannabis use, unspecified, uncomplicated; W22.01XA Walked into wall, initial encounter
CPT/HCPCS: 99283

== ENCOUNTER 2023-11-28 03:18 | Emergency (ER) | payer OTHER ==
[2023-11-28] MEDS ORDERED: TETRACAINE 0.5% OPHTH (PF) DROPS 4 ML BTL BOTH EYES STA (03:31)
[2023-11-28] MEDS ORDERED: FLUORESCEIN STRIPS 1 MG STRIP BOTH EYES ONE (03:31)
[2023-11-28 03:51] VITALS: TEMP 97.4
[2023-11-28] MEDS ORDERED: CIPROFLOXACIN 0.3% OPHTH SOLN 5 ML BTL BOTH EYES STA ×2 (04:50)
[2023-11-28] MEDS ORDERED: DIPH,PERTUS(ACELL)TETVAC-LF 0.5 ML VIAL IM ONE (04:53)
--- NOTE | 2023-11-28 04:55 | ED ---
General Adult HPI - General Chief complaint: Eye Problems Stated complaint: FB in both eyes Time Seen by Provider: 11/28/23 03:30 Source: patient, RN notes reviewed, old records reviewed Mode of arrival: ambulatory Limitations: no limitations - History of Present Illness Initial comments: Patient is a 43-year-old male who presents to the emergency Department complaining of foreign body sensation in bilateral eyes. Patient was working on a car earlier today around 4 PM. His concerning abdominal rest or other material into his eyes. Was doing well until he woke up this evening with foreign body sensation in bilateral eyes. Attempted to flush out at home but still having pain. Presents for further evaluation at this time. Denies any fevers or chills. Endorses some blurry vision but is also having tearing. States the pain is worse in the right eye. No other acute platelets at this time. Does not wear contacts. His post were glasses but does not. Unknown last tetanus vaccine. - Related Data Previous Rx's Medication Instructions Recorded Ciprofloxacin Ophth Soln [Cipro 2 drops BOTH EYES Q6HR 5 Days #5 ml 11/28/23 0.3% Ophth Soln] Allergies Allergy/AdvReac Type Severity Reaction Status Date / Time No Known Allergies Allergy Verified 11/28/23 03:26 Review of Systems ROS Statement: Those systems with pertinent positive or pertinent negative responses have been documented in the HPI. Review of Systems: CONST: Denies fever EYES: Endorses eye pain ENT: Denies nasal congestion C/V: Denies Chest pain RESP: Denies shortness of breath GI: Denies abdominal pain : Denies dysuria SKIN: Denies rash. MSK: Denies joint pain. NEURO: Denies headache ROS Other: All systems not noted in ROS Statement are negative. Past Medical History Past Medical History: Asthma, Osteoarthritis (OA) Additional Past Medical History / Comment(s): , Right shoulder pain , inguinal hernia, History of Any Multi-Drug Resistant Organisms: None Reported Past Surgical History: Hernia Repair Additional Past Surgical History / Comment(s): spleen repair in 1990, drained a cyst on pancreas , Past Anesthesia/Blood Transfusion Reactions: No Reported Reaction Past Psychological History: Depression Smoking Status: Current every day smoker Past Alcohol Use History: None Reported Past Drug Use History: Marijuana - Past Family History Mother Family Medical History: No Reported History General Exam - General Exam Comments Initial Comments: General: Appears in no acute distress. HEAD: Normal with no signs of head trauma. EYES: PERRLA, EOMI, pupils are 3 mm equal bilaterally. Patient has bilateral conjunctival injection. Visual acuity is 30/20 in the right eye, 25/20 in the left eye, and 25/20 bilaterally. Fluorescein staining reveals a small corneal abrasion located at the 9 o'clock position in the right eye. No evidence of globe rupture. ENT: Hearing grossly intact RESPIRATORY: No respiratory distress C/V: Regular rate and rhythm. ABD: Abd is nondistended EXT: no obvious deformity SKIN: No rashes or lesions observed on exposed skin. NEURO: Alert and oriented x 4. Limitations: no limitations Course Vital Signs 11/28/23 03:24 Temperature 97.4 F L Pulse Rate 84 Respiratory 18 Rate Blood Pressure 157/110 O2 Sat by Pulse 98 Oximetry Medical Decision Making - Medical Decision Making Was pt. sent in by a medical professional or institution (, PA, PROFESSOR OF BUSINESS, urgent care, hospital, or long term...) When possible be specific @ -No Did you speak to anyone other than the patient for history (EMS, parent, family, police, friend...)? What history was obtained from this source @ -No Did you review nursing and triage notes (agree or disagree)? Why? @ -I reviewed and agree with nursing and triage notes Were old charts reviewed (outside hosp., previous admission, EMS record, old EKG, old radiological studies, urgent care reports/EKG's, long term records)? Report findings @ -No old charts were reviewed Differential Diagnosis (chest pain, altered mental status, abdominal pain women, abdominal pain men, vaginal bleeding, weakness, fever, dyspnea, syncope, headache, dizziness, GI bleed, back pain, seizure, CVA, palpatations, mental health, musculoskeletal)? @ -Corneal abrasion, ocular foreign body, globe rupture. This list is not all-inclusive. EKG interpreted by me (3pts min.). @ -none done X-rays interpreted by me (1pt min.). @ -None done CT interpreted by me (1pt min.). @ -None done U/S interpreted by me (1pt. min.). @ -None done What testing was considered but not performed or refused? (CT, X-rays, U/S, labs)? Why? @ -None What meds were considered but not given or refused? Why? @ -None Did you discuss the management of the patient with other professionals (professionals i.e. , PA, PROFESSOR OF BUSINESS, lab, RT, psych nurse, dialysis social worker, bell spinner, teacher, executive vice president and chief financial officer, housing case manager)? Give summary @ -No Was smoking cessation discussed for >3mins.? @ -No Was critical care preformed (if so, how long)? @ -No Were there social determinants of health that impacted care today? How? (Homelessness, low income, unemployed, alcoholism, drug addiction, zapata sportation, low edu. Level, literacy, decrease access to med. care, snf, rehab)? @ -No Was there de-escalation of care discussed even if they declined (Discuss DNR or withdrawal of care, Hospice)? DNR status @ -No What co-morbidities impacted this encounter? (DM, HTN, Smoking, COPD, CAD, Cancer, CVA, ARF, Chemo, Hep., AIDS, mental health diagnosis, sleep apnea, morbid obesity)? @ -None Was patient admitted / discharged? Hospital course, mention meds given and route, prescriptions, significant lab abnormalities, going to OR and other pertinent info. @ -Based on the patient's presentation and physical exam, presents complaining of eye pain. Acuity is unchanged from baseline per patient. Patient appears to have a corneal abrasion in the right eye. Slit lamp reveals no obvious ocular foreign body. No other obvious injury. No evidence of globe rupture. I discussed with the patient and he will have a tetanus updated as well as be started on ciprofloxacin eyedrops. Recommended follow-up with ophthalmology. He was in agreement this plan. Vital signs within acceptable limits. I will provide the patient with a prescription for ciprofloxacin eyedrops. I instructed the patient to follow up with their PCP in the next 1-3 days. I provided contact information for follow up with ophthalmology. I explained that the patient should return to the emergency department if they experience any worsening symptoms. Strict return precautions were discussed with the patient. The patient expressed understanding of these instructions. I answered all questions that the patient had. The patient was discharged home in good condition with their prescriptions and follow up information. Undiagnosed new problem with uncertain prognosis? @ -No Drug Therapy requiring intensive monitoring for toxicity (Heparin, Nitro, Insulin, Cardizem)? @ -No Were any procedures done? @ -No Diagnosis/symptom? @ -Corneal abrasion Acute, or Chronic, or Acute on Chronic? @ -Acute Uncomplicated (without systemic symptoms) or Complicated (systemic symptoms)? @ -Uncomplicated Side effects of treatment? @ -No Exacerbation, Progression, or Severe Exacerbation? @ -No Poses a threat to life or bodily function? How? (Chest pain, [place], [place], pneumonia, PE, COPD, DKA, ARF, appy, cholecystitis, CVA, Diverticulitis, Homicidal, Suicidal, threat to staff... and all critical care pts) @ -No Disposition Clinical Impression: Corneal abrasion, right Disposition: HOME SELF-CARE Condition: Good Instructions (If sedation given, give patient instructions): Corneal Abrasion (ED) Prescriptions: Ciprofloxacin Ophth Soln [Cipro 0.3% Ophth Soln] 2 drops BOTH EYES Q6HR 5 Days #5 ml Is patient prescribed a controlled substance at d/c from ED?: No Referrals: None,Stated [Primary Care Provider] - 1-2 days Radha Jaimes MD [STAFF PHYSICIAN] - 1-2 days Time of Disposition: 04:52
[2023-11-28 05:32] VITALS: BP 131/92; PULSE 79; RESP 16
== END 2023-11-28 05:12 | disposition home or self-care (01) ==
LOC: EC 03:18
DX: S05.01XA Injury of conjunctiva and corneal abrasion without foreign body, right eye, initial encounter (principal); J45.909 Unspecified asthma, uncomplicated; F12.90 Cannabis use, unspecified, uncomplicated; F17.200 Nicotine dependence, unspecified, uncomplicated; Z86.59 Personal history of other mental and behavioral disorders; Z23 Encounter for immunization; X58.XXXA Exposure to other specified factors, initial encounter
CPT/HCPCS: 90471; 90715; 99283